=== PATIENT | male | born 1955 | race Caucasian/White ===

== ENCOUNTER 2020-09-23 21:03 | Inpatient (IN) | payer MEDICARE ==
[~2020-09-23] VITALS: Ht 167.6 cm; Wt 81.6 kg
[~2020-09-23 21:03] MED LIST: ACETAMINOPHEN325 MG PO; BAYER CHEWABLE81 MG PO; DULCOLAX5 MG PO; GUAIFENESI100 MG/5 M PO; HYDROCODONE-APA1 TAB PO; IMODIUM2 MG PO; LIDODERM 5 %1 PATCH TRANSDERM; MIRALAX17 GM PO; MULTIPLE VITAMI1 TA1 PO; PROTONIX40 MG PO; TUMS500 MG PO
[2020-09-23] MEDS ORDERED: BAYER CHEWABLE81 MG PO (21:11)
[2020-09-23] MEDS ORDERED: TYLENOL W/CODEI1 TAB PO (21:11)
[2020-09-23] MEDS ORDERED: ACEROLA C500 MG PO (21:11)
[2020-09-23] MEDS ORDERED: ASPERCREME 5 OZ5 OZ TOPICAL (21:11)
[2020-09-23] MEDS ORDERED: AMITIZA24 MCG PO (21:11)
[2020-09-23] MEDS ORDERED: DULCOLAX10 MG/SUPP RC (21:12)
[2020-09-23] MEDS ORDERED: VITAMIN D325 MC1 PO ×2 (21:12→21:15)
[2020-09-23] MEDS ORDERED: DEPAKOTE250 MG PO (21:12)
[2020-09-23] MEDS ORDERED: FEXMID7.5 MG PO (21:12)
[2020-09-23] MEDS ORDERED: LIPITOR10 MG PO (21:12)
[2020-09-23] MEDS ORDERED: FAMOTIDINE10 MG PO (21:13)
[2020-09-23] MEDS ORDERED: TOPROL XL25 MG PO (21:13)
[2020-09-23] MEDS ORDERED: COLACE100 MG PO (21:13)
[2020-09-23] MEDS ORDERED: LISINOPRIL20 MG PO (21:13)
[2020-09-23] MEDS ORDERED: DILAUDID4 MG PO (21:13)
[2020-09-23] MEDS ORDERED: PROMOD LIQUID P30 M1 PO (21:14)
[2020-09-23] MEDS ORDERED: MIRALAX17 GM PO (21:14)
[2020-09-23] MEDS ORDERED: MULTI-DAY VITAM1 TAB PO (21:14)
[2020-09-23] MEDS ORDERED: MILK OF MAGNESI30 ML PO (21:14)
[2020-09-23] MEDS ORDERED: NYSTATIN OINTME15 GM TOPICAL (21:14)
[2020-09-23] MEDS ORDERED: TRAZODONE HCL100 MG PO (21:15)
[2020-09-23] MEDS ORDERED: ZINC-220220 MG PO (21:15)
[2020-09-23] MEDS ORDERED: ZOFRAN ODT4 MG/UDTAB PO (21:16)
[2020-09-23 21:58] LABS: BASOPHILS 0.3 % (0-2); EOSINOPHILS 0 % (0-7); HEMATOCRIT 43.8 % (42.0-54.0); IMMATURE GRANULOCYTES 0.2 % (0-5); LYMPHOCYTES 25.4 % (15-50); MCH 26.1 pg (26.0-34.0); MCV 81.7 fL (80.0-100.0); MEAN PLATELET VOLUME 10.9 fL (7.4-10.4); MONOCYTES 10.5 % (2-11); NEUTROPHILS 63.6 % (40-80); PLATELET COUNT 240 10x3/uL (130-400); RBC 5.36 10x6/uL (4.20-6.10); RDW 16.7 % (11.5-14.5)
[2020-09-23 21:59] LABS: WBC 8.7 10x3/uL (4.8-10.8)
[2020-09-23 22:00] VITALS: BP 107/69
[2020-09-23 22:04] LABS: CALCIUM 8.2 mg/dL (8.5-10.1); CARBON DIOXIDE 30.4 mmol/L (21.0-32.0); CHLORIDE - SERUM 108 mmol/L (98-107); GLUCOSE 117 mg/dL (74-106); POTASSIUM - SERUM 3.7 mmol/L (3.5-5.1); SODIUM 145 mmol/L (136-145); eGFR NON AFRICAN AMERICAN 79 mL/min (90-120)
[2020-09-23 22:05] LABS: CALC OSMOLALITY 292 mosm/kg (275-300); INR 1.12 (0.85-1.17); PROTIME 13.4 SECONDS (11.6-15.0); UREA NITROGEN 22 mg/dL (7-18)
[2020-09-23 22:11] LABS: ALBUMIN 3.3 g/dL (3.4-5.0); ALKALINE PHOSPHATASE 90 U/L (30-120); ALT (SGPT) 16 U/L (10-68); PROTEIN - SERUM 7.2 g/dL (6.4-8.2)
[2020-09-23 23:00] VITALS: BP 103/61
[2020-09-24] MEDS ORDERED: AMITIZA24 MCG PO (01:46)
[2020-09-24] MEDS ORDERED: DULCOLAX5 MG PO (01:47)
[2020-09-24] MEDS ORDERED: CYCLOBENZAPRINE10 MG PO (01:52)
[2020-09-24 01:59] VITALS: BP 114/58; BMI 29.1
[2020-09-24] MEDS ORDERED: PROMOD LIQUID P30 M1 PO (03:47)
[2020-09-24] MEDS ORDERED: ACEROLA C500 MG PO (03:48)
[2020-09-24] MEDS ORDERED: ZINC-220220 MG PO (03:50)
[2020-09-24] MEDS ORDERED: VITAMIN D325 MC1 PO (03:50)
[2020-09-24 04:00] VITALS: BP 90/57
[2020-09-24 06:22] LABS: CALC OSMOLALITY 291 mosm/kg (275-300); CARBON DIOXIDE 30.2 mmol/L (21.0-32.0); CHLORIDE - SERUM 108 mmol/L (98-107); CREATININE - SERUM 0.9 mg/dL (0.6-1.3); GLUCOSE 106 mg/dL (74-106); MAGNESIUM - SERUM 2.5 mg/dL (1.8-2.4); PHOSPHOROUS 3.2 mg/dL (2.5-4.9); POTASSIUM - SERUM 3.4 mmol/L (3.5-5.1); SODIUM 145 mmol/L (136-145); UREA NITROGEN 22 mg/dL (7-18); eGFR NON AFRICAN AMERICAN 89 mL/min (90-120)
[2020-09-24 06:51] LABS: BASOPHILS 0.5 % (0-2); EOSINOPHILS 0.8 % (0-7); HEMATOCRIT 38.8 % (42.0-54.0); HEMOGLOBIN 11.9 g/dL (13.5-17.5); IMMATURE GRANULOCYTES 0.3 % (0-5); LYMPHOCYTE ABS# 2.94 10x3/uL (1.32-3.57); LYMPHOCYTES 30.8 % (15-50); MCH 25.4 pg (26.0-34.0); MCHC 30.7 g/dL (31.0-37.0); MCV 82.7 fL (80.0-100.0); MEAN PLATELET VOLUME 11.3 fL (7.4-10.4); MONOCYTES 10.8 % (2-11); NEUTROPHIL ABS# 5.43 10x3/uL (1.78-5.38); NEUTROPHILS 56.8 % (40-80); PLATELET COUNT 232 10x3/uL (130-400); RBC 4.69 10x6/uL (4.20-6.10); WBC 9.6 10x3/uL (4.8-10.8)
--- NOTE | 2020-09-24 07:35 | NUR ---
RECIEVED BEDSIDE REPORT. IN BED SLEEPING. FREE FROM SIGNS OF DISTRESS. BED LOW POSITION, CALL LIGHT IN REACH. IV INFUSING PER MAR. WILL CONTINUE TO MONITOR.
--- NOTE | 2020-09-24 09:20 | NUR ---
PATIENT BLOOD PRESSURE 89/43. CALLED DR. RENNER. HE GAVE VERBAL ORDERS TO INCREASE FLUIDS. WILL FOLLOW ORDERS AND CONTINUE TO MONITOR.
[2020-09-24 09:23] VITALS: BP 89/43
[2020-09-24 12:31] VITALS: BP 108/67
[2020-09-24 13:54] VITALS: Ht 167.6 cm; Wt 81.6 kg
[2020-09-24 16:36] VITALS: BP 112/60
--- NOTE | 2020-09-24 20:21 | NUR ---
SPOKE TO PATIENT ABOUT PHARMACY. HE USES [facility].
[2020-09-24 20:33] VITALS: BP 109/49
--- NOTE | 2020-09-25 04:01 | NUR ---
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 PAIN MED FROM [facility] MORPHINE Q4H MD RENNER CONTACTED OK FOR PT TO START MED. VITALS STABLE AT THE MOMENT. WILL CONT TO MONITOR.
[2020-09-25 05:47] VITALS: BP 104/53
--- NOTE | 2020-09-25 06:13 | NUR ---
I have reviewed this patient and I concur with the Shift Assessment completed by the Licensed Practical Nurse today this shift.
[2020-09-25 06:23] LABS: BASOPHILS 0.7 % (0-2); EOSINOPHILS 1.8 % (0-7); IMMATURE GRANULOCYTES 0.1 % (0-5); LYMPHOCYTE ABS# 2.71 10x3/uL (1.32-3.57); LYMPHOCYTES 38.2 % (15-50); MCH 25.2 pg (26.0-34.0); MCHC 30.7 g/dL (31.0-37.0); MEAN PLATELET VOLUME 10.9 fL (7.4-10.4); MONOCYTES 7.2 % (2-11); NEUTROPHIL ABS# 3.69 10x3/uL (1.78-5.38); RDW 16.4 % (11.5-14.5)
[2020-09-25 06:25] LABS: HEMATOCRIT 30.6 % (42.0-54.0); HEMOGLOBIN 9.4 g/dL (13.5-17.5); PLATELET COUNT 165 10x3/uL (130-400); RBC 3.73 10x6/uL (4.20-6.10); WBC 7.1 10x3/uL (4.8-10.8)
[2020-09-25 09:00] VITALS: BP 135/76
[2020-09-25 13:29] VITALS: BP 140/77
[2020-09-25 16:43] VITALS: BP 129/84
[2020-09-25 21:25] VITALS: BP 171/85
--- NOTE | 2020-09-26 01:47 | NUR ---
I have reviewed this patient and I concur with the Shift Assessment completed by the Licensed Practical Nurse today this shift.
[2020-09-26 05:46] LABS: BASOPHILS 0.9 % (0-2); EOSINOPHILS 3.1 % (0-7); HEMATOCRIT 33.2 % (42.0-54.0); HEMOGLOBIN 10.3 g/dL (13.5-17.5); IMMATURE GRANULOCYTES 0.2 % (0-5); LYMPHOCYTE ABS# 2.37 10x3/uL (1.32-3.57); LYMPHOCYTES 36.8 % (15-50); MCH 25.3 pg (26.0-34.0); MCV 81.6 fL (80.0-100.0); MEAN PLATELET VOLUME 11.1 fL (7.4-10.4); MONOCYTES 9.3 % (2-11); NEUTROPHILS 49.7 % (40-80); PLATELET COUNT 166 10x3/uL (130-400); RBC 4.07 10x6/uL (4.20-6.10); WBC 6.4 10x3/uL (4.8-10.8)
[2020-09-26 06:26] VITALS: BP 161/83
[2020-09-26 07:47] LABS: ALBUMIN 2.7 g/dL (3.4-5.0); ALKALINE PHOSPHATASE 72 U/L (30-120); ALT (SGPT) 13 U/L (10-68); BILIRUBIN - TOTAL 0.43 mg/dL (0.2-1.3); CALC OSMOLALITY 285 mosm/kg (275-300); CALCIUM 7.8 mg/dL (8.5-10.1); CHLORIDE - SERUM 110 mmol/L (98-107); CREATININE - SERUM 0.5 mg/dL (0.6-1.3); GLUCOSE 95 mg/dL (74-106); PROTEIN - SERUM 5.4 g/dL (6.4-8.2); SODIUM 145 mmol/L (136-145); UREA NITROGEN 3 mg/dL (7-18); eGFR NON AFRICAN AMERICAN > 90 mL/min (90-120)
[2020-09-26 07:53] LABS: POTASSIUM - SERUM 2.7 mmol/L (3.5-5.1)
--- NOTE | 2020-09-26 08:23 | NUR ---
PT IN BED WITH EYES CLOSED UPON ENTERING. AROUSES EASILY TO VOICE. ADMINISTERED MORNING MEDICATION, NO DIFFICULTIES. ASSESSMENT PERFORMED AT THIS TIME. DENIES ANY NEEDS AT THIS TIME. BED IN LOWEST POSITION, BED RAILS X2, CALL LIGHT WITHIN REACH. WILL CONTINUE POC.
[2020-09-26 08:40] VITALS: BP 160/95
--- NOTE | 2020-09-26 09:59 | NUR ---
PT IN BED WITH EYES CLOSED UPON ENTERING. EASILY AROUSES TO VOICE. ADMINISTERED PRN DILAUDID FOR REPORTED "9/10" PAIN IN BACK. HUNG ADULT MVI BAG. RESTING COMFORTABLY IN BED. DENIES ANY NEEDS AT THIS TIME. WILL CONTINUE POC.
--- NOTE | 2020-09-26 11:32 | NUR ---
ADMINISTERED MEDICATIONS WITH NO DIFFICULTIES. RESTING COMFORTABLY IN BED. DENIES ANY NEEDS AT THIS TIME. WILL CONTINUE POC.
--- NOTE | 2020-09-26 11:59 | NUR ---
I have reviewed this patient and I concur with the Shift Assessment completed by the Licensed Practical Nurse today this shift.
[2020-09-26 12:11] VITALS: BP 128/99
--- NOTE | 2020-09-26 17:13 | NUR ---
ADMINISTERED PRN DILAUDID FOR 9/10 PAIN IN BACK. EVENING MEDS, NO DIFFICULTIES. REQUESTING CRACKERS AND PEANUT BUTTER, PROVIDED PROMPTLY. DENIES FURTHER NEEDS AT THIS TIME. WILL CONTINUE POC.
[2020-09-26 18:06] VITALS: BP 140/88
[2020-09-26 20:00] VITALS: BP 158/89
[2020-09-27] VITALS: BP 159/92
--- NOTE | 2020-09-27 03:54 | NUR ---
I have reviewed this patient and I concur with the Shift Assessment completed by the Licensed Practical Nurse today this shift.
[2020-09-27 04:00] VITALS: BP 145/85
[2020-09-27 06:59] LABS: CALCIUM 7.7 mg/dL (8.5-10.1); CARBON DIOXIDE 29.7 mmol/L (21.0-32.0); CHLORIDE - SERUM 107 mmol/L (98-107); CREATININE - SERUM 0.5 mg/dL (0.6-1.3); GLUCOSE 109 mg/dL (74-106); SODIUM 142 mmol/L (136-145); eGFR NON AFRICAN AMERICAN > 90 mL/min (90-120)
[2020-09-27 07:07] LABS: CALC OSMOLALITY 280 mosm/kg (275-300); UREA NITROGEN 4 mg/dL (7-18)
[2020-09-27 07:08] LABS: POTASSIUM - SERUM 2.9 mmol/L (3.5-5.1)
[2020-09-27 07:25] LABS: BASOPHILS 0.9 % (0-2); EOSINOPHILS 2.9 % (0-7); HEMATOCRIT 33.4 % (42.0-54.0); HEMOGLOBIN 10.6 g/dL (13.5-17.5); IMMATURE GRANULOCYTES 0.1 % (0-5); LYMPHOCYTE ABS# 2.19 10x3/uL (1.32-3.57); LYMPHOCYTES 31.9 % (15-50); MCH 25.6 pg (26.0-34.0); MCHC 31.7 g/dL (31.0-37.0); MCV 80.7 fL (80.0-100.0); MEAN PLATELET VOLUME 11.2 fL (7.4-10.4); MONOCYTES 9.9 % (2-11); NEUTROPHIL ABS# 3.73 10x3/uL (1.78-5.38); NEUTROPHILS 54.3 % (40-80); PLATELET COUNT 182 10x3/uL (130-400); RBC 4.14 10x6/uL (4.20-6.10); RDW 15.8 % (11.5-14.5); WBC 6.9 10x3/uL (4.8-10.8)
[2020-09-27 09:06] VITALS: BP 143/75
[2020-09-27 12:52] VITALS: BP 136/79
--- NOTE | 2020-09-27 13:17 | NUR ---
Nutrition follow-up: Diet order: Regular Pt s/p EGD today PO intake ~80% average of last 4 meals Labs reviewed Wt: 180# +BM PO intake is good at this time RDN will follow-up: 09/30/20
[2020-09-27 16:16] VITALS: BP 117/70
[2020-09-27 20:00] VITALS: BP 129/79
[2020-09-28 04:00] VITALS: BP 129/85
--- NOTE | 2020-09-28 06:33 | NUR ---
I have reviewed this patient and I concur with the Shift Assessment completed by the Licensed Practical Nurse today this shift.
[2020-09-28 06:54] LABS: BASOPHILS 0.6 % (0-2); EOSINOPHILS 4.3 % (0-7); HEMATOCRIT 33.3 % (42.0-54.0); HEMOGLOBIN 10.5 g/dL (13.5-17.5); LYMPHOCYTE ABS# 1.96 10x3/uL (1.32-3.57); MCH 25.9 pg (26.0-34.0); MCHC 31.5 g/dL (31.0-37.0); MEAN PLATELET VOLUME 10.7 fL (7.4-10.4); NEUTROPHIL ABS# 3.43 10x3/uL (1.78-5.38); NEUTROPHILS 54.1 % (40-80); PLATELET COUNT 157 10x3/uL (130-400); RBC 4.06 10x6/uL (4.20-6.10); RDW 16.1 % (11.5-14.5); WBC 6.3 10x3/uL (4.8-10.8)
[2020-09-28 07:07] LABS: CALC OSMOLALITY 275 mosm/kg (275-300); CALCIUM 7.9 mg/dL (8.5-10.1); CARBON DIOXIDE 27.2 mmol/L (21.0-32.0); CHLORIDE - SERUM 107 mmol/L (98-107); CREATININE - SERUM 0.6 mg/dL (0.6-1.3); GLUCOSE 99 mg/dL (74-106); POTASSIUM - SERUM 3.3 mmol/L (3.5-5.1); SODIUM 140 mmol/L (136-145); UREA NITROGEN 4 mg/dL (7-18); eGFR NON AFRICAN AMERICAN > 90 mL/min (90-120)
[2020-09-28] MEDS ORDERED: K-DUR20 MEQ PO (07:54)
[2020-09-28] MEDS ORDERED: CARAFATE1 G PO (07:55)
[2020-09-28 08:30] VITALS: BP 150/90
--- NOTE | 2020-09-28 09:22 | MORECARE ---
CASE MANAGEMENT DISCHARGE SUMMARY PATIENT: SANTOS DE LA TORRE UNIT: [id number] ADM DATE: 09/24/20 AGE: 65 : 53 SEX: M ROOM/BED: D.2230 AUTHOR: KRYSTLE,DOC PHYSICIAN: REFERRING PHYSICIAN: YOLI RENNER MD DATE OF SERVICE: 09/28/20 Case Management Discharge Planning Summary COMMENTS ENTERED DATE: 09/28/20 9:20 CT COMMENT TYPE: Discharge Planning REVIEWER: Katt Villarreal PATIENT IS FROM [facility]. I HAVE FAXED DC INSTRUCTIONS TO THE FACILITY. PATIENT WILL NEED TO RETURN VIA AMBULANCE. RN GIVEN NUMBER TO CALL REPORT. WAITING CALL BACK FROM [facility]. CM TO FOLLOW AND ASSIST NEEDED. DCP REVIEW SUMMARY ANTICIPATED D/C DATE: 09/28/2020 EXPECTED LOS : 4 CASE STATUS: DCP Initiated INITIAL REVIEW: 09/24/2020 INITIAL REVIEWER: Katt Villarreal FINAL DISCHARGE DISPOSITION: : FINAL REVIEWER: FINAL REVIEW DATE: DCP Focus Questions & Answers DCP REV -DCP Review Added on: 09/28/20 9:16 am QUESTION: ANSWER DCP Screen High Risk Factors: : Polypharmacy (greater than 10 meds) DCP Evaluation Patient's ability to cope with chronic illness : d. No chronic illness Mental health screen: : No mental health history Would patient like to participate in any Care Coordination programs (if applicable): : Not applicable Physical Status: : Mobility impaired Partial Dependence, assistance required for: : Ambulation / Mobility Partial Dependence, assistance required for: : Bathing Partial Dependence, assistance required for: : Dressing Partial Dependence, assistance required for: : Eating Baseline cognitive status: : Confused Living Arrangements: : Assisted Facility Facility / Agency name and contact information from Question 3 (if applicable): : [facility] name(s): : [place] DCP Re-evaluation Would patient like to participate in any Care Coordination programs (if applicable): : Not applicable PROVIDER NETWORKING REVIEW DATE: 09/28/2020 SERVICE TYPE: Assisted Facility REVIEWER: Katt Villarreal PROVIDER: FINAL PROVIDER? : FINAL DATE/TIME: CT PATIENT: SANTOS DE LA TORRE ENCOUNTER: [id number] MEDICAL RECORD#: [id number] ADMISSION DATE: 09/24/2020 DISCHARGE DATE: ATTENDING MD: YOLI SCOTT : AGE: 65 MARITAL STATUS: U DC PLAN ID: [id number] FACILITY: [facility] PRINTED ON: 09/28/20 9:22 CT All edits/amendments must be made on the electronic document DICTATION DATE: 09/28/20921 DEPUTY PROSECUTING ATTORNEY: DEZ 09/28/20921 RPT#: [id number] DC DATE: STATUS: ADM IN [facility] [address] [place] [address] END OF REPORT
--- NOTE | 2020-09-28 09:53 | NUR ---
NOTIFIED MD THAT TELEMETRY REPORTED PATIENT IS HAVING PVC'S. NO NEW ORDERS NOTED. STATED PATIENT WILL BE DISCHARGED ON [facility]A BLOCKERS.
--- NOTE | 2020-09-28 11:08 | NUR ---
IV ACSESS AND PROJECT PORTFOLIO ANALYST REMOVED PT DISCHARGED TO [facility] B7 REPORT CALLED TO JARROD CASON.
--- NOTE | 2020-09-28 13:45 | NUR ---
[facility] ARRIVED TRANSPORTED PATIENT TO [facility] VIA AMBULANCE.
--- NOTE | 2020-09-28 16:36 | MORECARE ---
CASE MANAGEMENT DISCHARGE SUMMARY PATIENT: SANTOS DE LA TORRE UNIT: [id number] ADM DATE: 09/24/20 AGE: 65 : 53 SEX: M ROOM/BED: D.2230 AUTHOR: KRYSTLE,DOC PHYSICIAN: REFERRING PHYSICIAN: YOLI RENNER MD DATE OF SERVICE: 09/28/20 Case Management Discharge Planning Summary COMMENTS ENTERED DATE: 09/28/20 9:20 CT COMMENT TYPE: Discharge Planning REVIEWER: Katt Villarreal PATIENT IS FROM [facility]. I HAVE FAXED DC INSTRUCTIONS TO THE FACILITY. PATIENT WILL NEED TO RETURN VIA AMBULANCE. RN GIVEN NUMBER TO CALL REPORT. WAITING CALL BACK FROM [facility]. CM TO FOLLOW AND ASSIST NEEDED. DCP REVIEW SUMMARY ANTICIPATED D/C DATE: 09/28/2020 EXPECTED LOS : 4 CASE STATUS: DCP Initiated INITIAL REVIEW: 09/24/2020 INITIAL REVIEWER: Katt Villarreal FINAL DISCHARGE DISPOSITION: : FINAL REVIEWER: FINAL REVIEW DATE: DCP Focus Questions & Answers DCP REV -DCP Review Added on: 09/28/20 9:16 am QUESTION: ANSWER DCP Screen High Risk Factors: : Polypharmacy (greater than 10 meds) DCP Evaluation Patient's ability to cope with chronic illness : d. No chronic illness Mental health screen: : No mental health history Would patient like to participate in any Care Coordination programs (if applicable): : Not applicable Physical Status: : Mobility impaired Partial Dependence, assistance required for: : Ambulation / Mobility Partial Dependence, assistance required for: : Bathing Partial Dependence, assistance required for: : Dressing Partial Dependence, assistance required for: : Eating Baseline cognitive status: : Confused Living Arrangements: : [facility] Facility / Agency name and contact information from Question 3 (if applicable): : [facility] name(s): : [place] DCP Re-evaluation Would patient like to participate in any Care Coordination programs (if applicable): : Not applicable PROVIDER NETWORKING REVIEW DATE: 09/28/2020 SERVICE TYPE: [facility] Facility REVIEWER: Katt Villarreal PROVIDER: FINAL PROVIDER? : FINAL DATE/TIME: CT PATIENT: SANTOS DE LA TORRE ENCOUNTER: [id number] MEDICAL RECORD#: [id number] ADMISSION DATE: 09/24/2020 DISCHARGE DATE: 09/28/2020 ATTENDING MD: GAYLE SCOTTAND : AGE: 65 MARITAL STATUS: U DC PLAN ID: [id number] FACILITY: [facility] PRINTED ON: 09/28/20 16:36 CT All edits/amendments must be made on the electronic document DICTATION DATE: 09/28/201635 INTERNATIONAL SALES MANAGER: DEZ 09/28/20 163 RPT#: [id number] DC DATE:09/28/20 STATUS: DIS IN [facility] [address] [place] [address] END OF REPORT
--- NOTE | 2020-09-29 08:09 | MORECARE ---
CASE MANAGEMENT DISCHARGE SUMMARY PATIENT: SANTOS DE LA TORRE UNIT: [id number] ADM DATE: 09/24/20 AGE: 65 : 51 SEX: M ROOM/BED: D.2230 AUTHOR: KRYSTLE,DOC PHYSICIAN: REFERRING PHYSICIAN: YOLI RENNER MD DATE OF SERVICE: 09/29/20 Case Management Discharge Planning Summary COMMENTS ENTERED DATE: 09/28/20 9:20 CT COMMENT TYPE: Discharge Planning REVIEWER: Katt Villarreal PATIENT IS FROM [facility]. I HAVE FAXED DC INSTRUCTIONS TO THE FACILITY. PATIENT WILL NEED TO RETURN VIA AMBULANCE. RN GIVEN NUMBER TO CALL REPORT. WAITING CALL BACK FROM [facility]. CM TO FOLLOW AND ASSIST NEEDED. DCP REVIEW SUMMARY ANTICIPATED D/C DATE: 09/28/2020 EXPECTED LOS : 4 CASE STATUS: DCP Initiated INITIAL REVIEW: 09/24/2020 INITIAL REVIEWER: Katt Villarreal FINAL DISCHARGE DISPOSITION: : FINAL REVIEWER: FINAL REVIEW DATE: DCP Focus Questions & Answers DCP REV -DCP Review Added on: 09/28/20 9:16 am QUESTION: ANSWER DCP Screen High Risk Factors: : Polypharmacy (greater than 10 meds) DCP Evaluation Patient's ability to cope with chronic illness : d. No chronic illness Mental health screen: : No mental health history Would patient like to participate in any Care Coordination programs (if applicable): : Not applicable Physical Status: : Mobility impaired Partial Dependence, assistance required for: : Ambulation / Mobility Partial Dependence, assistance required for: : Bathing Partial Dependence, assistance required for: : Dressing Partial Dependence, assistance required for: : Eating Baseline cognitive status: : Confused Living Arrangements: : [facility] Facility Facility / Agency name and contact information from Question 3 (if applicable): : [facility] name(s): : [facility] DCP Re-evaluation Would patient like to participate in any Care Coordination programs (if applicable): : Not applicable PROVIDER NETWORKING REVIEW DATE: 09/28/2020 SERVICE TYPE: [facility] Facility REVIEWER: Katt Villarreal PROVIDER: FINAL PROVIDER? : FINAL DATE/TIME: CT PATIENT: SANTOS DE LA TORRE ENCOUNTER: [id number] MEDICAL RECORD#: [id number] ADMISSION DATE: 09/24/2020 DISCHARGE DATE: 09/28/2020 ATTENDING MD: GAYLE SCOTTAND : AGE: 65 MARITAL STATUS: U DC PLAN ID: [id number] FACILITY: [facility] PRINTED ON: 09/29/20 8:08 CT All edits/amendments must be made on the electronic document DICTATION DATE: 09/29/20807 LEASING DIRECTOR: DEZ 09/29/20807 RPT#: [id number] DC DATE:09/28/20 STATUS: DIS IN [facility] [address] [place] [address] END OF REPORT
== END 2020-09-28 13:45 | DRG 369 ==
LOC: D.ER 21:03 → D.MS 22:44 → OBSVTIME 22:44 → D.MS 22:44
PROVIDERS: Family Medicine; Internal Medicine Gastroenterology; ADMIT Family Medicine; ATTEND Family Medicine
PROC: 0DJ08ZZ Inspection of Upper Intestinal Tract, Via Natural or Artificial Opening Endoscopic (ICD-10-PCS; principal; 2020-09-27 08:00)
DX: K21.01 Gastro-esophageal reflux disease with esophagitis, with bleeding (principal); G81.94 Hemiplegia, unspecified affecting left nondominant side; I10 Essential (primary) hypertension; I65.21 Occlusion and stenosis of right carotid artery; K21.9 Gastro-esophageal reflux disease without esophagitis; I69.819 Unspecified symptoms and signs involving cognitive functions following other cerebrovascular disease; F01.50 Vascular dementia, unspecified severity, without behavioral disturbance, psychotic disturbance, mood disturbance, and anxiety; F34.1 Dysthymic disorder; E78.5 Hyperlipidemia, unspecified; I25.10 Atherosclerotic heart disease of native coronary artery without angina pectoris; E55.9 Vitamin D deficiency, unspecified; R53.81 Other malaise; K59.03 Drug induced constipation

== ENCOUNTER → 2020-10-01 20:36 | Outpatient (CLI) | payer MEDICARE ==
[2020-09-24 13:54] VITALS: BMI 29.0
[~2020-10-01 20:36] MED LIST changes: +ACEROLA C500 MG PO; +AMITIZA24 MCG PO; +ASPERCREME 5 OZ5 OZ TOPICAL; +CARAFATE1 G PO; +COLACE100 MG PO; +CYCLOBENZAPRINE10 MG PO; +DEPAKOTE250 MG PO; +DILAUDID4 MG PO; +DULCOLAX10 MG/SUPP RC; +FAMOTIDINE10 MG PO; +FEXMID7.5 MG PO; +K-DUR20 MEQ PO; +LIPITOR10 MG PO; +LISINOPRIL20 MG PO; +MILK OF MAGNESI30 ML PO; +MULTI-DAY VITAM1 TAB PO; +NYSTATIN OINTME15 GM TOPICAL; +PROMOD LIQUID P30 M1 PO; +TOPROL XL25 MG PO; +TRAZODONE HCL100 MG PO; +TYLENOL W/CODEI1 TAB PO; +VITAMIN D325 MC1 PO; +ZINC-220220 MG PO; +ZOFRAN ODT4 MG/UDTAB PO
[2020-10-01 21:05] LABS: BASOPHILS 0.4 % (0-2); EOSINOPHILS 1.4 % (0-7); HEMATOCRIT 40.8 % (42.0-54.0); HEMOGLOBIN 12.7 g/dL (13.5-17.5); IMMATURE GRANULOCYTES 0.1 % (0-5); LYMPHOCYTE ABS# 2.15 10x3/uL (1.32-3.57); MCHC 31.1 g/dL (31.0-37.0); MCV 83.6 fL (80.0-100.0); MEAN PLATELET VOLUME 11.5 fL (7.4-10.4); MONOCYTES 9.4 % (2-11); NEUTROPHIL ABS# 6.15 10x3/uL (1.78-5.38); NEUTROPHILS 65.7 % (40-80); RBC 4.88 10x6/uL (4.20-6.10); RDW 16.9 % (11.5-14.5); WBC 9.4 10x3/uL (4.8-10.8)
[2020-10-01 21:06] LABS: PLATELET COUNT 273 10x3/uL (130-400)
[2020-10-01 21:34] LABS: ALBUMIN 3.3 g/dL (3.4-5.0); ALKALINE PHOSPHATASE 99 U/L (30-120); ALT (SGPT) 17 U/L (10-68); BILIRUBIN - TOTAL 0.23 mg/dL (0.2-1.3); CALC OSMOLALITY 287 mosm/kg (275-300); CALCIUM 8.6 mg/dL (8.5-10.1); CARBON DIOXIDE 26.7 mmol/L (21.0-32.0); CHLORIDE - SERUM 107 mmol/L (98-107); CREATININE - SERUM 0.6 mg/dL (0.6-1.3); POTASSIUM - SERUM 3.8 mmol/L (3.5-5.1); PROTEIN - SERUM 6.8 g/dL (6.4-8.2); SODIUM 146 mmol/L (136-145); UREA NITROGEN 12 mg/dL (7-18); eGFR NON AFRICAN AMERICAN > 90 mL/min (90-120)
[2020-10-01 21:41] LABS: GLUCOSE 36 mg/dL (74-106)
== END | disposition home or self-care (01) ==
LOC: D.LABREF 20:36
PROVIDERS: ATTEND Family Medicine
DX: E78.5 Hyperlipidemia, unspecified (principal); I25.10 Atherosclerotic heart disease of native coronary artery without angina pectoris; I10 Essential (primary) hypertension; K21.01 Gastro-esophageal reflux disease with esophagitis, with bleeding; K21.9 Gastro-esophageal reflux disease without esophagitis

== ENCOUNTER → 2020-12-31 17:54 | Outpatient (CLI) | payer MEDICARE ==
[2020-09-24 13:54] VITALS: BMI 29.0
== END | disposition home or self-care (01) ==
LOC: D.LABREF 17:54
PROVIDERS: ATTEND Family Medicine
DX: Z79.899 Other long term (current) drug therapy (principal)